=== PATIENT | female | born 1985 | race African-American/Black ===

== ENCOUNTER 2017-04-19 16:35 | Emergency (ER) | payer OTHER ==
[~2017-04-19] VITALS: Ht 170.2 cm; Wt 77.1 kg
[2017-04-19 17:05] VITALS: BP 153/90
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
[2017-04-19] MEDS ORDERED: HYDR-971 PO (17:31)
[2017-04-19] MEDS ORDERED: CYCL10TA2 PO (17:31)
[2017-04-19] MEDS ORDERED: CYCLOBENZAPRINE 10 MG TABLET. PO ONE (17:45)
[2017-04-19] MEDS ORDERED: HYDROcodone/APAP 5/325MG 1 TAB TABLET PO ONE (17:45)
== END 2017-04-19 17:43 | disposition home or self-care (01) ==
LOC: ER 16:35
DX: M54.12 Radiculopathy, cervical region (principal); V43.52XA Car driver injured in collision with other type car in traffic accident, initial encounter; Y93.I9 Activity, other involving external motion; Y92.488 Other paved roadways as the place of occurrence of the external cause; Y99.8 Other external cause status
CPT/HCPCS: 99283